=== PATIENT | male | born 1975 | race Caucasian/White ===

== ENCOUNTER 2021-09-17 08:23 | Observation (INO) | payer OTHER ==
[~2021-09-17] VITALS: Ht 177.8 cm; Wt 97.5 kg
[2021-09-17 08:26] VITALS: BP 136/90
[2021-09-17 08:57] LABS: ABSOLUTE BASOPHILS 0.1 thou/uL (0.0-0.2); ABSOLUTE EOSINOPHILS 0.2 thou/uL (0.0-0.7); ABSOLUTE LYMPHOCYTES 2.6 thou/uL (0.8-5.3); ABSOLUTE MONOCYTES 0.6 thou/uL (0.0-1.2); ABSOLUTE NEUTROPHILS 7.8 thou/uL (1.6-8.1); BASOPHILS 0.5 %; EOSINOPHILS 1.5 %; HEMATOCRIT 44.5 % (42.0-52.0); LYMPHOCYTES 23.4 %; MCH 28.9 pg (26.0-34.0); MCHC 33.6 g/dL (28.0-37.0); MONOCYTES 5.2 %; MPV 8.2 fl. (7.2-11.1); NUCLEATED RBCS 0 /100WBC; PLATELET COUNT* 262 thou/uL (150-400); POLYS 69.4 %; RBC 5.18 mil/uL (4.50-6.00); RDW-CV 13.1 % (10.5-14.5); WBC 11.2 thou/uL (4.0-11.0)
[2021-09-17 09:12] LABS: CALCIUM 8.8 mg/dL (8.5-10.1); CREATININE 1.3 mg/dL (0.6-1.3)
[2021-09-17 09:14] LABS: POTASSIUM 6.1 mmol/L (3.5-5.1)
[2021-09-17 09:22] LABS: MAGNESIUM 2.2 mg/dL (1.8-2.4); TOTAL BILIRUBIN 0.4 mg/dL (<0.1-1.0); TOTAL PROTEIN 7.8 g/dL (6.4-8.2)
--- NOTE | 2021-09-17 10:03 | EKG ---
[place] [address] ELECTROCARDIOGRAM REPORT Name: RADHA MCMULLEN Room: [place] [address] ADM IN .R.#: [id number] Admission: 09/17/21 Attend Phys: Alex Herrera Discharge: Date of : 75 Date of Service: 09/17/2125 Report #: [id number] THIS REPORT FOR: //name// [facility] ED Test Date: 2021-09-17 Test Time: 08:25:53 Pat Name: RADHA MCMULLEN Department: Room: [facility] Gender: M Mobile Device Engineer: : [id number] Requested By: Farzad Burgos Order Number: [id number] MD: Jose Haines Measurements Intervals [place] Rate: 83 P: 52 SD: 151 QRS: 40 QRSD: 82 T: 34 QT: 346 QTc: 407 Interpretive Statements Sinus rhythm Probable left atrial enlargement No previous ECG available for comparison Electronically Signed On 09-17-2021 10:03:27 RADIOLOGY TRANSCRIPTIONIST by Jose Haines [email or web address] <ELECTRONICALLY SIGNED> By: Jose Haines MD, [facility] 09/17/21 1003 4 4 Jose Haines MD, [facility] /EPI
[2021-09-17 11:40] VITALS: BP 101/68
[2021-09-17 11:41] LABS: CALCIUM 8.8 mg/dL (8.5-10.1); CREATININE 1.1 mg/dL (0.6-1.3)
[2021-09-17 11:43] LABS: POTASSIUM 5.1 mmol/L (3.5-5.1)
[2021-09-17 12:00] VITALS: BP 122/70
[2021-09-17 16:00] VITALS: BP 143/85
[2021-09-17 20:00] VITALS: BP 117/69
[2021-09-18] VITALS: BP 109/68
[2021-09-18 02:06] LABS: GLYCOHEMOGLOBIN (HGB A1C) 9.6 % (4.8-5.6)
[2021-09-18 04:00] VITALS: BP 106/74
--- NOTE | 2021-09-18 04:04 | NUR ---
PT ALERT ORIENTED. UP AD TOÑA IN ROOM. NO PAIN. HS BLOOD GLUCOSE WNL AND REQUIRED NO COVERAGE. CARDAIC MONITOR TRACING SR. NO PAIN.
[2021-09-18 04:46] LABS: HEMATOCRIT 42.2 % (42.0-52.0); MCH 28.9 pg (26.0-34.0); MCHC 33.1 g/dL (28.0-37.0); MCV 87.4 fL (80.0-100.0); MPV 8.7 fl. (7.2-11.1); RBC 4.84 mil/uL (4.50-6.00); RDW-CV 13.1 % (10.5-14.5); WBC 12.7 thou/uL (4.0-11.0)
[2021-09-18 05:19] LABS: CREATININE 1.1 mg/dL (0.6-1.3)
--- NOTE | 2021-09-18 07:05 | NUR ---
CHANGE OF SHIFT REPORT GIVEN PATIENT SEEN AT BEDSIDE, IN BED RESTING ASSUMED PATIENT CARE
[2021-09-18 08:00] VITALS: BP 126/81
[2021-09-18 14:33] VITALS: BP 126/81
--- NOTE | 2021-09-18 15:55 | NUR ---
NEW MEDICATION METFORMIN ORDER CALLED IN TO PATIENTS PHARMACY
--- NOTE | 2021-09-18 16:05 | NUR ---
PATIENT DISCHARGED TO HOME IV AND HEART MONITOR REMOVED PERSONAL BELONGINGS RETURNED DISCHARGE INFORMATION GIVEN AND PAPERWORK GIVEN PATIENT NEW DIABETIC DIAGNOSIS AND EDUCATION GIVEN DIABETIC KIT GIVEN ALSO PATIENT WALKED OUT TO WAITING CAR
--- NOTE | 2021-09-18 16:31 | NUR ---
CM ASSESSMENT ASSESSMENT COMPLETED WITH PT WHO WAS ALERT AND ORIENTED. PT LIVES IN HOME WITH ROOMATES. PT IS IND WITH ADLS. PT HAS NO HX OF DME, ARU, SNF, OR HH. PT MED CLEAR FOR DC HOME WITH NO CM NEEDS.
== END 2021-09-18 15:45 | disposition home or self-care (01) ==
LOC: M.ERS 08:23 → M.2W 09:47 → M.TBA-ER 09:47 → M.2W 09:47
PROVIDERS: Emergency Medicine Emergency Medical Services; ADMIT Internal Medicine; ATTEND Internal Medicine
DX: R07.2 Precordial pain (principal); E87.5 Hyperkalemia; R61 Generalized hyperhidrosis; R06.02 Shortness of breath; Z20.822 Contact with and (suspected) exposure to COVID-19; R00.2 Palpitations; Z79.899 Other long term (current) drug therapy